=== PATIENT | female | born 1990 | race American Indian/Alaskan Native ===

== ENCOUNTER 2020-12-09 11:11 | Emergency (ER) | payer SELFPAY ==
--- NOTE | 2020-12-09 12:47 | Emergency Department Report ---
ED Chest Pain HPI - General Chief Complaint: Chest Pain Stated Complaint: PINCH IN CHEST Time Seen by Provider: 12/09/20 11:24 Source: patient Mode of arrival: Ambulatory Limitations: No Limitations - History of Present Illness Initial Comments: Patient presents with a pinching chest pain that started earlier today and yesterday. She described as a pinching sensation in the chest. This is diffusely in the chest. She gets these variable sensations that lasts seconds. She is also noticed pinching in the left arm and left leg. She decided to come here for evaluation. There is no trauma. Has no shortness of breath and there is no cough congestion. No vomit or diarrhea. Patient was concerned and came here. She is never had symptoms like this before. - Related Data Previous Rx's Medication Instructions Recorded Last Taken Type Ibuprofen [Motrin] 600 mg PO Q8H PRN #20 tablet 12/09/20 Unknown Rx Allergies Allergy/AdvReac Type Severity Reaction Status Date / Time No Known Allergies Allergy Verified 12/09/20 11:22 Heart Score - HEART Score History: Slightly suspicious EKG: Normal Age: < 45 Risk factors: No known risk factors Troponin: < normal limit (Not obtained) HEART Score: 0 - EKG Read Time Time EKG Completed: 15:00 (Approximate) EKG Read Time: 15:00 (Approximate) ED Review of Systems ROS: Stated complaint: PINCH IN CHEST Other details as noted in HPI Comment: All other systems reviewed and negative Constitutional: denies: fever Eyes: denies: eye pain ENT: denies: throat pain Respiratory: denies: cough Cardiovascular: as per HPI Endocrine: denies: unexplained weight loss Gastrointestinal: denies: abdominal pain Genitourinary: denies: dysuria Musculoskeletal: denies: back pain Skin: denies: rash Neurological: denies: headache Hematological/Lymphatic: denies: easy bruising ED Past Medical Hx - Past Medical History Previous Medical History?: No - Family History Family history: no significant - Social History Smoking Status: Never Smoker - Medications Home Medications: Home Medications Medication Instructions Recorded Confirmed Last Taken Type Ibuprofen [Motrin] 600 mg PO Q8H PRN #20 tablet 12/09/20 Unknown Rx ED Physical Exam - General Limitations: No Limitations, Other (Pulse ox noted and normal. On my exam it was 97%) General appearance: alert, in no apparent distress - Head Head exam: Present: atraumatic, normocephalic, normal inspection - Eye Eye exam: Present: normal appearance, EOMI - ENT ENT exam: Present: normal orophraynx, mucous membranes moist, normal external ear exam - Neck Neck exam: Present: normal inspection. Absent: meningismus - Respiratory Respiratory exam: Present: normal lung sounds bilaterally. Absent: respiratory distress - Cardiovascular Cardiovascular Exam: Present: regular rate, normal rhythm - GI/Abdominal GI/Abdominal exam: Present: soft. Absent: tenderness - Extremities Exam Extremities exam: Present: normal capillary refill. Absent: pedal edema - Back Exam Back exam: Absent: CVA tenderness (R), CVA tenderness (L) - Neurological Exam Neurological exam: Present: alert, oriented X3, normal gait. Absent: motor sensory deficit - Psychiatric Psychiatric exam: Present: normal affect, normal mood - Skin Skin exam: Present: warm, dry ED Course - Reevaluation(s) Reevaluation #1: 12/09/20 19:42 EKG have been noted. ED Medical Decision Making - EKG Data -: EKG Interpreted by Me - EKG Data 12/09/20 19:42 EKG shows a normal sinus rhythm with normal intervals. There is no ST elevation to suggest any further ST depression suggestive of ischemia. There is no old EKG for comparison. QRS and QT corrected are normal. - Medical Decision Making Patient presents with a pinching pain in the chest and arm and leg. Certainly, there is no EKG changes suggestive of STEMI. She does not have risk factors for STEMI. Patient is not diabetic. She has no pulse deficit that would suggest aortic dissection. Symptoms are only left-sided. It is unlikely this represents a stroke as she has no neurologic deficit. Patient was treated symptomatically and referred for outpatient evaluation. Etiology for this pinching sensation is unknown. Critical Care Time: No Critical care attestation.: If time is entered above; I have spent that time in minutes in the direct care of this critically ill patient, excluding procedure time. ED Disposition Clinical Impression: Left arm pain, Left leg pain Chest pain Qualifiers: Chest pain type: unspecified Qualified Code(s): R07.9 - Chest pain, unspecified Disposition: 01 HOME / SELF CARE / HOMELESS Is pt being admited?: No Condition: Stable Instructions: Nonspecific Chest Pain, Adult Additional Instructions: Drink plenty water. Return for problems. Follow-up with your regular doctor for recheck. If you do not have a regular doctor, follow-up with the referral physician. Prescriptions: Ibuprofen [Motrin] 600 mg PO Q8H PRN #20 tablet PRN Reason: Pain Referrals: PRIMARY CARE, [Primary Care Provider] - 3-5 Days WALLACE PALMER MD [Staff Physician] - 3-5 Days
--- NOTE | 2020-12-10 09:13 | Electrocardiograph Report ---
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
== END 2020-12-09 13:58 | disposition home or self-care (01) ==
LOC: ED 11:11
DX: R07.9 Chest pain, unspecified (principal); M79.602 Pain in left arm; M79.605 Pain in left leg
CPT/HCPCS: 93005; 99282